=== PATIENT | female | born 1985 | race Caucasian/White ===

== ENCOUNTER 2023-05-26 10:46 | Emergency (ER) | payer OTHER ==
[~2023-05-26] VITALS: Ht 172.7 cm; Wt 149.7 kg
[2023-05-26 11:42] LABS: BASOPHILS ABSOLUTE AUTO 0.06 K/mm3 (0.00-0.23); BASOPHILS PERCENT AUTO 1 % (0-2); EOSINOPHILS ABSOLUTE AUTO 0.47 K/mm3 (0.00-0.68); EOSINOPHILS PERCENT AUTO 4 % (0-6); Hematocrit 36.1 % (33.0-51.0); Hemoglobin 11.3 g/dL (11.5-16.0); IMMATURE GRAN ABSOLUTE AUTO 0.09 K/mm3 (0.00-0.10); IMMATURE GRAN PERCENT AUTO 1 % (0-1); LYMPHOCYTES ABSOLUTE AUTO 2.91 K/mm3 (0.84-5.20); LYMPHOCYTES PERCENT AUTO 26 % (21-46); MONOCYTES ABSOLUTE AUTO 0.59 K/mm3 (0.16-1.47); MONOCYTES PERCENT AUTO 5 % (4-13); Mean Corpuscular HGB 25.6 pg (26.0-34.0); Mean Corpuscular HGB Conc 31.3 g/dL (31.5-36.5); Mean Corpuscular Volume 82 fL (80-100); Mean Platelet Volume 9.5 fL (9.1-12.4); NEUTROPHILS ABSOLUTE AUTO 7.16 K/mm3 (1.96-9.15); NEUTROPHILS PERCENT AUTO 64 % (41-73); Platelet Count 388 K/mm3 (150-400); Red Blood Cell Count 4.41 M/mm3 (3.80-5.20); White Blood Cell Count 11.28 K/mm3 (4.00-11.30)
[2023-05-26 11:59] LABS: Albumin, Blood 2.8 g/dL (3.4-5.0); Albumin/Globulin Ratio 0.6 (0.8-1.8); Bilirubin, Total 0.4 mg/dL (0.1-1.0); Bun/Creatinine Ratio 13.6 (12.0-20.0); Calcium, Blood 8.5 mg/dL (8.5-10.1); Creatinine, Blood 0.66 mg/dL (0.40-1.00); Globulin, Blood 4.6 g/dL (2.2-4.0); Potassium, Blood 3.9 mmol/L (3.5-5.5); Total Protein, Blood 7.4 g/dL (6.4-8.2)
[2023-05-26 12:45] VITALS: BP 150/99
[2023-05-26 12:46] LABS: Source, Urine Clean Catch
[2023-05-26 12:48] LABS: Appearance, Urine Hazy (Clear); Bilirubin, Urine Neg (Neg); Blood, Urine 1+ (Neg); Color, Urine Yellow (P-Yellow); Glucose Qualitative, Urine Neg (Neg); Ketones, Urine Neg (Neg); Leukocyte Esterase, Urine 3+ (Neg); Nitrite, Urine Neg (Neg); Protein, Urine 1+ (Neg); Specific Gravity, Urine 1.025 (1.003-1.022); Urobilinogen, Urine NORM (Normal)
[2023-05-26 12:59] LABS: Hyaline Casts 0-2 /lpf (0-2)
[2023-05-26 13:00] LABS: Amorphous Light (0-Heavy); Calcium Oxalate Crystals Many /hpf
[2023-05-26 13:01] LABS: Bacteria Many /hpf; Squamous Epithelial Cells Many /hpf (Few)
[2023-05-26 13:02] LABS: Mucus Heavy (0-Heavy)
[2023-05-26 13:08] LABS: Red Blood Cells, Urine 0-2 /hpf (0-2)
[2023-05-26 13:09] LABS: White Blood Cells, Urine 0-2 /hpf (0-5)
[2023-05-26] MEDS ORDERED: ONDA4ODT MM (13:39)
== END 2023-05-26 14:20 | disposition home or self-care (01) ==
LOC: ER 10:46
PROVIDERS: Emergency Medicine
DX: R10.9 Unspecified abdominal pain (principal); I10 Essential (primary) hypertension; Z88.5 Allergy status to narcotic agent; K21.9 Gastro-esophageal reflux disease without esophagitis
CPT/HCPCS: 80053; 81001; 85025; 87086; 99284

== ENCOUNTER 2023-07-02 10:36 | Emergency (ER) | payer OTHER ==
[~2023-07-02] VITALS: Ht 172.7 cm; Wt 181.4 kg
[~2023-07-02 10:36] MED LIST: ONDA4ODT MM
[2023-07-02 11:02] VITALS: BP 139/88
[2023-07-02] MEDS ORDERED: BELBUCA300 MCG BC (11:04)
[2023-07-02] MEDS ORDERED: OMEP20ER PO (11:04)
[2023-07-02] MEDS ORDERED: Prinivil10 MG PO (11:04)
[2023-07-02] MEDS ORDERED: METO50ER PO (11:04)
== END 2023-07-02 12:34 | disposition home or self-care (01) ==
LOC: ER 10:36
DX: U07.1 COVID-19 (principal); I10 Essential (primary) hypertension; K21.9 Gastro-esophageal reflux disease without esophagitis; Z88.5 Allergy status to narcotic agent; Z79.899 Other long term (current) drug therapy
CPT/HCPCS: 99283

== ENCOUNTER 2023-09-07 14:08 | Emergency (ER) | payer OTHER ==
[~2023-09-07] VITALS: Ht 172.7 cm; Wt 158.8 kg
[~2023-09-07 14:08] MED LIST changes: +BELBUCA300 MCG BC; +METO50ER PO; +OMEP20ER PO; +Prinivil10 MG PO
[2023-09-07 14:34] VITALS: BP 153/94
== END 2023-09-07 14:38 | disposition home or self-care (01) ==
LOC: ER 14:08
DX: J06.9 Acute upper respiratory infection, unspecified (principal); I10 Essential (primary) hypertension; Z91.040 Latex allergy status; Z88.6 Allergy status to analgesic agent; Z79.899 Other long term (current) drug therapy
CPT/HCPCS: 99282

== ENCOUNTER 2023-12-13 09:40 | Emergency (ER) | payer OTHER ==
[~2023-12-13] VITALS: Ht 172.7 cm; Wt 172.4 kg
[2023-12-13 10:12] VITALS: BP 121/67
[2023-12-13 11:29] LABS: Influenza A, PCR NEGATIVE (NEGATIVE); Influenza B, PCR NEGATIVE (NEGATIVE); Resp Syncytial Virus, PCR NEGATIVE (NEGATIVE); SARS-Cov-2 (COVID-19) PCR, MMC NEGATIVE (NEGATIVE)
== END 2023-12-13 12:10 | disposition home or self-care (01) ==
LOC: ER 09:40
PROVIDERS: Student in an Organized Health Care Education/Training Program
DX: J06.9 Acute upper respiratory infection, unspecified (principal); Z88.5 Allergy status to narcotic agent; Z91.040 Latex allergy status; Z79.899 Other long term (current) drug therapy; I10 Essential (primary) hypertension
CPT/HCPCS: 0241U; 99283

== ENCOUNTER 2024-03-06 16:13 | Emergency (ER) | payer OTHER ==
[~2024-03-06] VITALS: Ht 172.7 cm; Wt 172.4 kg
[2024-03-06 16:54] VITALS: BP 143/102
[2024-03-06] MEDS ORDERED: FURO20 PO (18:19)
[2024-03-06] MEDS ORDERED: K-Dur20 MEQ PO (18:19)
== END 2024-03-06 18:41 | disposition home or self-care (01) ==
LOC: ER 16:13
DX: R60.0 Localized edema (principal); I10 Essential (primary) hypertension; Z79.899 Other long term (current) drug therapy; Z88.5 Allergy status to narcotic agent; Z91.040 Latex allergy status
CPT/HCPCS: 99282

== ENCOUNTER 2024-05-04 20:49 | Emergency (ER) | payer OTHER ==
[~2024-05-04] VITALS: Ht 172.7 cm; Wt 172.4 kg
[~2024-05-04 20:49] MED LIST changes: +FURO20 PO; +K-Dur20 MEQ PO
[2024-05-04] MEDS ORDERED: Ibuprofen 600 MG Tab PO ONE (21:00)
[2024-05-04 21:48] LABS: Influenza A, PCR NEGATIVE (NEGATIVE); Influenza B, PCR NEGATIVE (NEGATIVE); Resp Syncytial Virus, PCR NEGATIVE (NEGATIVE); SARS-Cov-2 (COVID-19) PCR, MMC NEGATIVE (NEGATIVE)
[2024-05-04] MEDS ORDERED: Ventolin5 MG/1 ML INH (22:14)
[2024-05-04 23:30] VITALS: BP 136/89
[2024-05-04] MEDS ORDERED: Flonase 0.05% N16 GM (23:44)
== END 2024-05-05 | disposition home or self-care (01) ==
LOC: ER 20:49
PROVIDERS: Student in an Organized Health Care Education/Training Program
DX: J06.9 Acute upper respiratory infection, unspecified (principal)
CPT/HCPCS: 0241U; 87430; 99283; A9270

== ENCOUNTER 2024-05-07 16:25 | Emergency (ER) | payer OTHER ==
[~2024-05-07] VITALS: Ht 172.7 cm; Wt 172.4 kg
[~2024-05-07 16:25] MED LIST changes: +Flonase 0.05% N16 GM; +Ventolin5 MG/1 ML INH
[2024-05-07 16:35] VITALS: BP 152/92
[2024-05-07] MEDS ORDERED: PSEU120ER PO (17:56)
[2024-05-07] MEDS ORDERED: AMOCLA875 PO (17:56)
== END 2024-05-07 18:12 | disposition home or self-care (01) ==
LOC: ER 16:25
DX: L08.9 Local infection of the skin and subcutaneous tissue, unspecified (principal); J32.9 Chronic sinusitis, unspecified; E11.9 Type 2 diabetes mellitus without complications; I10 Essential (primary) hypertension; J44.9 Chronic obstructive pulmonary disease, unspecified; Z79.51 Long term (current) use of inhaled steroids; Z79.899 Other long term (current) drug therapy; Z91.013 Allergy to seafood; Z91.040 Latex allergy status; Z88.5 Allergy status to narcotic agent
CPT/HCPCS: 99282

== ENCOUNTER 2024-05-19 19:48 | Emergency (ER) | payer OTHER ==
[~2024-05-19] VITALS: Ht 172.7 cm; Wt 172.4 kg
[~2024-05-19 19:48] MED LIST changes: +AMOCLA875 PO; +PSEU120ER PO
[2024-05-19 20:03] VITALS: BP 144/98
[2024-05-19] MEDS ORDERED: METO25 PO (20:40)
[2024-05-19] MEDS ORDERED: Pseudoephedrine HCl 30 MG Tab PO ONE (21:50)
[2024-05-19] MEDS ORDERED: Flonase 0.05% N16 GM (21:50)
[2024-05-19] MEDS ORDERED: Ketorolac Tromethamine 30mg Vial IM ONE (21:55)
== END 2024-05-19 22:12 | disposition home or self-care (01) ==
LOC: ER 19:48
DX: J32.9 Chronic sinusitis, unspecified (principal); I10 Essential (primary) hypertension; J44.9 Chronic obstructive pulmonary disease, unspecified; E11.9 Type 2 diabetes mellitus without complications; Z79.899 Other long term (current) drug therapy
CPT/HCPCS: 96372; 99283; 99283-25; A9270; J1885

== ENCOUNTER → 2025-07-03 | Outpatient (CLI) | payer OTHER | LOC: LAB 14:20 | DX: E11.42 Type 2 diabetes mellitus with diabetic polyneuropathy (principal); E11.3293 Type 2 diabetes mellitus with mild nonproliferative diabetic retinopathy without macular edema, bilateral; E11.59 Type 2 diabetes mellitus with other circulatory complications ==

== ENCOUNTER 2025-07-08 19:45 | Emergency (ER) | payer OTHER ==
[~2025-07-08] VITALS: Ht 172.7 cm; Wt 159.2 kg
[~2025-07-08 19:45] MED LIST changes: +METO25 PO
[2025-07-08 20:18] LABS: BASOPHILS ABSOLUTE AUTO 0.09 K/mm3 (0.00-0.23); BASOPHILS PERCENT AUTO 1 % (0-2); EOSINOPHILS ABSOLUTE AUTO 0.46 K/mm3 (0.00-0.68); EOSINOPHILS PERCENT AUTO 3 % (0-6); Hematocrit 37.2 % (33.0-51.0); Hemoglobin 12.0 g/dL (11.5-16.0); IMMATURE GRAN ABSOLUTE AUTO 0.09 K/mm3 (0.00-0.10); IMMATURE GRAN PERCENT AUTO 1 % (0-1); LYMPHOCYTES ABSOLUTE AUTO 3.54 K/mm3 (0.84-5.20); LYMPHOCYTES PERCENT AUTO 21 % (21-46); MONOCYTES ABSOLUTE AUTO 0.76 K/mm3 (0.16-1.47); MONOCYTES PERCENT AUTO 5 % (4-13); Mean Corpuscular HGB Conc 32.3 g/dL (31.5-36.5); Mean Corpuscular Volume 79 fL (80-100); NEUTROPHILS ABSOLUTE AUTO 12.05 K/mm3 (1.96-9.15); NEUTROPHILS PERCENT AUTO 71 % (41-73); NRBC ABSOLUTE 0.00 K/mm3 (0.00-0.02); NRBC Auto 0.0 /100 WBC (0.0-0.2); Platelet Count 444 K/mm3 (150-400); RDW Coefficient Variation 14.2 % (11.7-14.2); RDW Standard Deviation 40.5 fL (35.1-46.3)
[2025-07-08 20:39] LABS: Alanine Aminotransfer (ALT/SGP 34.0 U/L (12-78); Albumin, Blood 3.1 g/dL (3.4-5.0); Albumin/Globulin Ratio 0.6 (0.8-1.8); Anion Gap 9.0 mmol/L (3-11); Aspartate Aminotrans (AST/SGOT 26.0 U/L (12-37); Bilirubin, Total 0.3 mg/dL (0.1-1.0); Blood Urea Nitrogen 8.0 mg/dL (8-24); CO2, Blood 27.0 mmol/L (21-32); Calcium, Blood 9.0 mg/dL (8.5-10.1); Chloride, Blood 104.0 mmol/L (98-108); Creatinine, Blood 0.48 mg/dL (0.40-1.00); Globulin, Blood 5.0 g/dL (2.2-4.0); Glucose, Blood 220.0 mg/dL (70-99); Potassium, Blood 3.8 mmol/L (3.5-5.5); Sodium, Blood 136.0 mmol/L (136-145); Total Protein, Blood 8.1 g/dL (6.4-8.2)
[2025-07-08] MEDS ORDERED: CYCL10 PO (21:14)
[2025-07-08 21:44] VITALS: BP 140/97
== END 2025-07-08 21:44 | disposition home or self-care (01) ==
LOC: ER 19:45
PROVIDERS: Emergency Medicine
DX: M54.12 Radiculopathy, cervical region (principal); R07.2 Precordial pain; I10 Essential (primary) hypertension; E11.9 Type 2 diabetes mellitus without complications; J44.9 Chronic obstructive pulmonary disease, unspecified; Z91.013 Allergy to seafood; Z91.040 Latex allergy status; Z88.5 Allergy status to narcotic agent; Z79.899 Other long term (current) drug therapy
CPT/HCPCS: 70450; 71045; 72125; 80053; 83880; 84484; 85025; 93005; 93010; 99285-25